=== PATIENT | male | born 1970 | race Caucasian/White ===

== ENCOUNTER 2016-07-10 10:52 | Emergency (ER) | payer BC ==
[~2016-07-10 10:52] MED LIST: ASPIRIN; DARVOCET-N 1001 TAB PO; DICLOFENAC SODI75 MG PO; FLEXERIL10 MG PO; IBUPROFEN; NORCO 5/325 TAB1 TAB PO; NORCO 7.5/325 T1 TAB PO; PEN-VEE K500 MG PO; PERCOCET 5/3251 TAB PO; TYLENOL; VICODIN 5-3001 EAC2 PO
[2016-07-10] MEDS ORDERED: TYLENOL PM EX-1 EAC4 PO (10:59)
[2016-07-10] MEDS ORDERED: IBUPROFEN200 M3 PO (10:59)
[2016-07-10] MEDS ORDERED: PENICILLIN V P500 M1 PO (11:06)
[2016-07-10] MEDS ORDERED: PERCOCET 5-3251 EACH PO (11:06)
== END 2016-07-10 11:13 ==
LOC: EDMED 10:52
DX: K02.9 Dental caries, unspecified (principal); F17.200 Nicotine dependence, unspecified, uncomplicated